=== PATIENT | female | born 2000 | race Caucasian/White ===

== ENCOUNTER 2023-04-08 22:56 | Inpatient (IN) | payer MEDICAID, OTHER ==
[~2023-04-08] VITALS: Ht 182.9 cm; Wt 131.5 kg
[2023-04-08 23:10] VITALS: BP 141/70; PULSE 100; RESP 17; TEMP 97.6; O2SAT 98
--- NOTE | 2023-04-08 23:10 | NUR ---
TO BED AMBULATORY
[2023-04-08] MEDS ORDERED: MORPHINE SULFATE 4 MG/ML SYR IVP ONE (23:25)
[2023-04-08] MEDS ORDERED: ONDANSETRON 4 MG/2 ML VIAL IVP ONE (23:25)
[2023-04-08 23:41] LABS: BASOPHILS # (AUTO) 0.1 K/uL (0.00-0.22); BASOPHILS % (AUTO) 0.9 % (0.0-2.0); EOSINOPHILS # (AUTO) 0.1 K/uL (0-0.4); EOSINOPHILS % (AUTO) 1.2 % (0.0-4.0); HEMATOCRIT 39.4 % (36-48); HEMOGLOBIN 13.4 g/dL (12.0-16.0); LYMPHOCYTES # (AUTO) 3.9 K/uL (2.5-16.5); LYMPHOCYTES % (AUTO) 42.7 % (20.5-51.1); MEAN CORPUSCULAR HEMOGLOBIN 29 pg (27-31); MEAN CORPUSCULAR HGB CONC 34 g/dL (33-37); MEAN CORPUSCULAR VOLUME 84.7 fL (80-94); MONOCYTES # (AUTO) 0.8 K/uL (0.8-1.0); MONOCYTES % (AUTO) 8.5 % (1.7-9.3); NEUTROPHILS # (AUTO) 4.3 K/uL (1.8-7.7); NEUTROPHILS % (AUTO) 46.7 % (42.2-75.2); PLATELET COUNT (AUTO) 277 K/uL (140-450); RED BLOOD CELL COUNT(AUTO) 4.65 MIL/uL (4.20-5.40); RED CELL DISTRIBUTION WIDTH 13.8 % (11.6-13.7); WHITE BLOOD COUNT (AUTO) 9.2 K/uL (4.8-10.8)
--- NOTE | 2023-04-08 23:44 | NUR ---
23 YO F BIB SELF WITH C/C OF 9/10 EPIGASTRIC PAIN RAD TO BACK X1HR. REPORTS NAUSEA, DENIES VOMITING. PT REPORTS SHE HAS HAD THIS PAIN IN PAST BUT RESOLVES ON ITS OWN. DENIES TAKING MEDICATION FOR PAIN. CALL LIGHT WITHIN REACH, PT DEMONSTRATED USE OF CALL LIGHT. ALL NEEDS MET AT THIS TIME. BED LOCKED IN LOWEST POSITION SIDE RAILS X2 FOR SAFETY. PT ON MANAGER EXPORT. DENIES HX, RX AND ALLERGIES
--- NOTE | 2023-04-08 23:46 | NUR ---
23 Y/O F BIB SELF FROM HOME WITH C/C OF EPIGASTRIC PAIN RADIATING TO RIGHT BACK X1HR WITH 9/10 PAIN. PT STATED THIS HAS HAPPENED BEFORE BUT THE PAIN HAS GONE AWAY ON OWN. PT DENIES TAKING ANY MEDICATIONS FOR PAIN AT HOME. PT HAS SOME NAUSEA DENIES VD, DENIES HEADACHE. PT STATED HER MENSTRUAL CYCLE IS IRREGULAR HASNT HAD ONE X1YR. PT HAS CALL LIGHT WITHIN REACH, SIDE RAILS X2 UP FOR SAFETY. PMH- PT DENIES NKA
[2023-04-09] LABS: ALBUMIN 3.4 g/dL (3.4-5.0); CARBON DIOXIDE 26.7 mmol/L (21-32); CREATININE 0.8 mg/dL (0.6-1.3); POTASSIUM 3.7 mmol/L (3.5-5.1); TOTAL BILIRUBIN 0.3 mg/dL (0.0-1.0)
--- NOTE | 2023-04-09 01:44 | NUR ---
URINE COLLECTED AND SENT TO LAB
[2023-04-09 02:04] LABS: APPEARANCE,URINE CLEAR (CLEAR); BILIRUBIN,URINE NEGATIVE (NEGATIVE); BLOOD, URINE TRACE-I (NEGATIVE); COLOR,URINE YELLOW (YELLOW); LEUKOCYTE ESTERASE ,URINE NEGATIVE (NEGATIVE); NITRITE, URINE NEGATIVE (NEGATIVE); UGLUCOSE NEGATIVE (NEGATIVE)
[2023-04-09 02:15] LABS: RBC,URINE 0-5 /HPF (0-5)
--- NOTE | 2023-04-09 02:30 | NUR ---
PT RESTING IN ROOM, BEDSIDE. PENDING ADMISSION
[2023-04-09] MEDS ORDERED: MORPHINE SULFATE 4 MG/ML SYR IVP ONE (02:35)
[2023-04-09 03:36] VITALS: O2SAT 98
[2023-04-09] MEDS ORDERED: NACL 0.9% 1,000 ML IV SCH (04:40)
[2023-04-09] MEDS ORDERED: HYDROcodone/APAP 5/325 MG 1 TAB TAB PO PRN (04:40)
[2023-04-09] MEDS ORDERED: POTASSIUM CHLORIDE 10 MEQ TABER PO PRN (04:40)
[2023-04-09] MEDS ORDERED: ACETAMINOPHEN 325 MG TAB PO PRN (04:40)
[2023-04-09] MEDS ORDERED: MAGNESIUM OXIDE 400 MG TAB PO PRN (04:40)
[2023-04-09] MEDS ORDERED: ONDANSETRON 4 MG/2 ML VIAL IVP PRN (04:40)
--- NOTE | 2023-04-09 04:55 | NUR ---
PT STATED SHE DID NOT NEED MORE FLUIDS. CHARGE NOTIFIED
[2023-04-09 06:09] VITALS: O2SAT 98
--- NOTE | 2023-04-09 07:21 | NUR ---
Report recieved from ANGIE Camarillo for transfer of care.
--- NOTE | 2023-04-09 07:21 | NUR ---
Pt report given to GEORGI ADAMS. Transfer of care at this time.
--- NOTE | 2023-04-09 07:52 | NUR ---
Patient ambulated to restroom with steady gait.
--- NOTE | 2023-04-09 08:07 | NUR ---
Patient is resting in bed, vital signs stable. All needs met by staff. Call light is within reach.
--- NOTE | 2023-04-09 08:25 | NUR ---
Patient reports pain is decreasing with pain medication, pain level is now at a 5/10.
--- NOTE | 2023-04-09 08:28 | NUR ---
Patient will be admitted to care of Dr. Lee. Admited to Med-Surg. Will go to room 124-B. Belongings list completed. Report to ROSALES Russell.
--- NOTE | 2023-04-09 08:45 | NUR ---
PT ARRIVED TO [facility] UNIT FROM ER VIA WHEELCHAIR. PT STABLE UPON ARRIVAL. AMBULATED TO BED. ORIENTED PT TO ROOM, BED MECHANICS AND CALL LIGHT. CALL LIGHT PLACED WITHIN REACH. NO FURTHER NEEDS ARE TO BE MET AT THIS TIME. WILL CONTINUE WITH PT CARE.
--- NOTE | 2023-04-09 08:56 | NUR ---
PATIENT HAS BEEN SCREENED AND CATEGORIZED LOW NUTRITION RISK. PATIENT WILL BE SEEN WITHIN 7 DAYS OF ADMISSION. 04/09/23-04/16/[address]
[2023-04-09 09:00] VITALS: PULSE 78; RESP 20; O2SAT 100
[2023-04-09] MEDS ORDERED: DOCUSATE SODIUM 100 MG GELCAP PO SCH (09:00)
--- NOTE | 2023-04-09 09:41 | NUR ---
The patient's care was reviewed and supervised by ED OCONNOR RN.
[2023-04-09] MEDS ORDERED: TRAM50TA3 PO (10:47)
[2023-04-09 12:46] VITALS: BP 112/70; PULSE 78; RESP 20; TEMP 97.7
--- NOTE | 2023-04-09 14:00 | NUR ---
DISCHARGE INSTRUCTIONS PROVIDED. PT VERBALIZE UNDERSTANDING, FORMS SIGNED. IV REMOVED, ID BAND REMOVED. PT WALKED OUT OF UNIT WITH BOYFRIEND, STABLE UPON LEAVING.
== END 2023-04-09 13:25 | disposition home or self-care (01) ==
LOC: MED 22:56 → MTU 04-09 04:41
PROVIDERS: ADMIT Internal Medicine; ATTEND Internal Medicine
DX: K80.70 Calculus of gallbladder and bile duct without cholecystitis without obstruction (principal); K76.0 Fatty (change of) liver, not elsewhere classified; R74.01 Elevation of levels of liver transaminase levels
CPT/HCPCS: 36415; 76705; 80053; 81001; 82150; 83690; 85025; J1644; J2270; J2405; Q0092

== ENCOUNTER 2023-10-03 12:50 | Emergency (ER) | payer OTHER ==
[~2023-10-03] VITALS: Ht 180.3 cm; Wt 129.7 kg
[~2023-10-03 12:50] MED LIST: TRAM50TA3 PO
[2023-10-03 12:58] VITALS: BP 152/100; PULSE 129; RESP 18; TEMP 98.6; O2SAT 100
[2023-10-03] MEDS ORDERED: KETOROLAC 30 MG/ML VIAL IM ONE (13:30)
[2023-10-03] MEDS ORDERED: FLONAS NS (13:52)
[2023-10-03] MEDS ORDERED: IBUP-2218 PO (13:52)
[2023-10-03] MEDS ORDERED: LORA1T1237 PO (13:52)
[2023-10-03 14:20] VITALS: BP 148/98; PULSE 107; RESP 18; TEMP 98.6; O2SAT 100
[2023-10-03 14:33] LABS: FLU A ANTIGEN negative (NEGATIVE); FLU B ANTIGEN negative (NEGATIVE)
== END 2023-10-03 14:33 | disposition home or self-care (01) ==
LOC: MED 12:50
DX: U07.1 COVID-19 (principal); Z79.899 Other long term (current) drug therapy
CPT/HCPCS: 81025; 87426; 87804; 96372; 99283; J1885

== ENCOUNTER 2023-12-25 22:41 | Inpatient (IN) | payer OTHER ==
[~2023-12-25] VITALS: Ht 180.3 cm; Wt 129.7 kg
[~2023-12-25 22:41] MED LIST changes: +FLONAS NS; +IBUP-2218 PO; +LORA1T1237 PO
[2023-12-25 22:45] VITALS: BP 127/87; PULSE 77; RESP 19; TEMP 98; O2SAT 98
[2023-12-26 00:01] LABS: APPEARANCE,URINE CLEAR (CLEAR); BILIRUBIN,URINE NEGATIVE (NEGATIVE); BLOOD, URINE TRACE-I (NEGATIVE); COLOR,URINE YELLOW (YELLOW); LEUKOCYTE ESTERASE ,URINE NEGATIVE (NEGATIVE); NITRITE, URINE NEGATIVE (NEGATIVE); PROTEIN,URINE NEGATIVE (NEGATIVE); UGLUCOSE NEGATIVE (NEGATIVE); UROBILINOGEN,URINE 0.2 EU/dL (0.2 - 1)
[2023-12-26 00:01] LABS: BASOPHILS # (AUTO) 0.1 K/uL (0.00-0.22); BASOPHILS % (AUTO) 0.7 % (0.0-2.0); EOSINOPHILS # (AUTO) 0.2 K/uL (0-0.4); EOSINOPHILS % (AUTO) 1.3 % (0.0-4.0); HEMATOCRIT 40.1 % (36-48); HEMOGLOBIN 13.6 g/dL (12.0-16.0); LYMPHOCYTES # (AUTO) 3.8 K/uL (2.5-16.5); LYMPHOCYTES % (AUTO) 32.2 % (20.5-51.1); MEAN CORPUSCULAR HEMOGLOBIN 28 pg (27-31); MEAN CORPUSCULAR HGB CONC 34 g/dL (33-37); MONOCYTES # (AUTO) 0.6 K/uL (0.8-1.0); MONOCYTES % (AUTO) 5.3 % (1.7-9.3); NEUTROPHILS # (AUTO) 7.1 K/uL (1.8-7.7); NEUTROPHILS % (AUTO) 60.5 % (42.2-75.2); PLATELET COUNT (AUTO) 261 K/uL (140-450); RED BLOOD CELL COUNT(AUTO) 4.83 MIL/uL (4.20-5.40); RED CELL DISTRIBUTION WIDTH 14.6 % (11.6-13.7); WHITE BLOOD COUNT (AUTO) 11.8 K/uL (4.8-10.8)
[2023-12-26] MEDS: NACL 0.9% 1,000 ML IV ONE (00:03)
[2023-12-26 00:07] LABS: BACTERIA,URINE >30 (MANY) /HPF (None Seen); MUCUS,URINE 1+ /LPF (None Seen); SQUAMOUS EPITHELIAL CELL,UR 0-3 (FEW) /LPF (0-3 (FEW)); WBC,URINE 0-5 /HPF (0-5)
[2023-12-26] MEDS: MORPHINE SULFATE 4 MG/ML SYR IVP ONE ×2 (00:07→02:20)
[2023-12-26] MEDS: ONDANSETRON 4 MG/2 ML VIAL IVP ONE (00:08)
[2023-12-26 00:16] LABS: ALBUMIN 3.5 g/dL (3.4-5.0); TOTAL BILIRUBIN 0.3 mg/dL (0.0-1.0); TOTAL PROTEIN, SERUM 7.4 g/dL (6.4-8.2)
[2023-12-26 00:32] LABS: ANION GAP 12.5 (8-16); CARBON DIOXIDE 29.3 mmol/L (21-32); CREATININE 0.9 mg/dL (0.6-1.3); POTASSIUM 3.8 mmol/L (3.5-5.1)
[2023-12-26] MEDS ORDERED: cefTRIAXone 1,000 MG VIAL ONE (01:21)
[2023-12-26] MEDS ORDERED: ACETAMINOPHEN 325 MG TAB PO PRN (04:00)
[2023-12-26] MEDS: NACL 0.9% 1,000 ML IV SCH (04:54)
[2023-12-26] MEDS ORDERED: AMPICILLIN/SULBACTAM 1.5 GM VIAL ONE (05:49)
[2023-12-26] MEDS: AMPICILLIN/SULBACTAM 1.5 GM in NACL 0.9% 50 ML IV SCH ×2 (05:58→13:48)
[2023-12-26 09:00] VITALS: PULSE 83; RESP 15; RESP 18; O2SAT 97
[2023-12-26 16:00] VITALS: BP 103/61; PULSE 73; RESP 17; TEMP 97.4; O2SAT 97
[2023-12-26 20:00] VITALS: BP 127/78; PULSE 81; RESP 18; TEMP 98.2; O2SAT 97
[2023-12-26] MEDS: MORPHINE SULFATE 2 MG/ML SYR IVP PRN (20:59)
[2023-12-27] VITALS: BP 115/75; PULSE 75; RESP 18; TEMP 97.2; O2SAT 99
[2023-12-27 06:09] LABS: BASOPHILS % (AUTO) 0.5 % (0.0-2.0); EOSINOPHILS # (AUTO) 0.1 K/uL (0-0.4); EOSINOPHILS % (AUTO) 1.4 % (0.0-4.0); HEMATOCRIT 36.8 % (36-48); HEMOGLOBIN 12.4 g/dL (12.0-16.0); LYMPHOCYTES # (AUTO) 3.1 K/uL (2.5-16.5); LYMPHOCYTES % (AUTO) 41.7 % (20.5-51.1); MEAN CORPUSCULAR HEMOGLOBIN 28 pg (27-31); MEAN CORPUSCULAR HGB CONC 34 g/dL (33-37); MEAN CORPUSCULAR VOLUME 84.1 fL (80-94); MONOCYTES # (AUTO) 0.5 K/uL (0.8-1.0); MONOCYTES % (AUTO) 6.9 % (1.7-9.3); NEUTROPHILS # (AUTO) 3.7 K/uL (1.8-7.7); NEUTROPHILS % (AUTO) 49.5 % (42.2-75.2); PLATELET COUNT (AUTO) 270 K/uL (140-450); RED BLOOD CELL COUNT(AUTO) 4.38 MIL/uL (4.20-5.40); RED CELL DISTRIBUTION WIDTH 14.1 % (11.6-13.7); WHITE BLOOD COUNT (AUTO) 7.4 K/uL (4.8-10.8)
[2023-12-27 06:42] LABS: ALBUMIN 3.1 g/dL (3.4-5.0); ANION GAP 11.6 (8-16); CALCIUM 8.4 mg/dL (8.5-10.1); CARBON DIOXIDE 26.4 mmol/L (21-32); CREATININE 0.7 mg/dL (0.6-1.3); TOTAL BILIRUBIN 0.4 mg/dL (0.0-1.0); TOTAL PROTEIN, SERUM 6.6 g/dL (6.4-8.2)
[2023-12-27 08:00] VITALS: BP 121/75; PULSE 66; RESP 18; TEMP 98.4; O2SAT 96
[2023-12-27] MEDS: HYDROcodone/APAP 5/325 MG 1 TAB TAB PO PRN (09:24)
[2023-12-27] MEDS: PANTOPRAZOLE 40 MG INJ VIAL IVP SCH (10:13)
[2023-12-27] MEDS ORDERED: COMMUNICATION ORDER MC PRN (11:45)
[2023-12-27] MEDS: ACETAMINOPHEN EXTRA STRENGTH 500 MG TAB PO PRN (11:53)
[2023-12-27] MEDS: ALUMINUM HYD/MAG/SIMETHICONE 30 ML UDC PO SCH (12:12)
[2023-12-27] MEDS: DICYCLOMINE HCL LIQUID 10 MG/5 ML UDC PO SCH (12:12)
[2023-12-27 16:42] VITALS: BP 123/72; PULSE 72; RESP 18; TEMP 98.3; O2SAT 95
[2023-12-27 20:00] VITALS: BP 131/76; PULSE 78; RESP 18; TEMP 98; O2SAT 98
[2023-12-27] MEDS: ONDANSETRON 4 MG/2 ML VIAL IVP PRN (20:17)
[2023-12-28 04:00] VITALS: BP 119/78; PULSE 68; RESP 18; TEMP 98.8; O2SAT 99
[2023-12-28 06:07] LABS: BASOPHILS % (AUTO) 0.5 % (0.0-2.0); EOSINOPHILS # (AUTO) 0.1 K/uL (0-0.4); EOSINOPHILS % (AUTO) 1.2 % (0.0-4.0); HEMATOCRIT 37.6 % (36-48); HEMOGLOBIN 12.5 g/dL (12.0-16.0); LYMPHOCYTES # (AUTO) 2.3 K/uL (2.5-16.5); LYMPHOCYTES % (AUTO) 34.8 % (20.5-51.1); MEAN CORPUSCULAR HEMOGLOBIN 28 pg (27-31); MEAN CORPUSCULAR HGB CONC 33 g/dL (33-37); MEAN CORPUSCULAR VOLUME 84.1 fL (80-94); MONOCYTES # (AUTO) 0.5 K/uL (0.8-1.0); MONOCYTES % (AUTO) 8.2 % (1.7-9.3); NEUTROPHILS # (AUTO) 3.7 K/uL (1.8-7.7); NEUTROPHILS % (AUTO) 55.3 % (42.2-75.2); PLATELET COUNT (AUTO) 262 K/uL (140-450); RED BLOOD CELL COUNT(AUTO) 4.47 MIL/uL (4.20-5.40); RED CELL DISTRIBUTION WIDTH 14.2 % (11.6-13.7); WHITE BLOOD COUNT (AUTO) 6.6 K/uL (4.8-10.8)
[2023-12-28 06:34] LABS: ALBUMIN 2.9 g/dL (3.4-5.0); ANION GAP 12.5 (8-16); CALCIUM 7.9 mg/dL (8.5-10.1); CREATININE 0.6 mg/dL (0.6-1.3); POTASSIUM 3.5 mmol/L (3.5-5.1); TOTAL BILIRUBIN 1.4 mg/dL (0.0-1.0); TOTAL PROTEIN, SERUM 6.2 g/dL (6.4-8.2)
[2023-12-28 08:00] VITALS: PULSE 75; RESP 18; O2SAT 97
[2023-12-28 16:00] VITALS: BP 125/79; PULSE 72; RESP 18; TEMP 98.2; O2SAT 97
[2023-12-28 20:00] VITALS: BP 109/68; PULSE 82; RESP 18; TEMP 98.5; O2SAT 97; O2SAT 98
[2023-12-29 04:00] VITALS: BP 112/68; PULSE 76; RESP 19; TEMP 97.7; O2SAT 98
[2023-12-29 05:54] LABS: BASOPHILS # (AUTO) 0.1 K/uL (0.00-0.22); BASOPHILS % (AUTO) 0.5 % (0.0-2.0); EOSINOPHILS # (AUTO) 0.3 K/uL (0-0.4); EOSINOPHILS % (AUTO) 2.5 % (0.0-4.0); HEMATOCRIT 38.1 % (36-48); HEMOGLOBIN 13.1 g/dL (12.0-16.0); LYMPHOCYTES # (AUTO) 3.6 K/uL (2.5-16.5); MEAN CORPUSCULAR HEMOGLOBIN 28 pg (27-31); MEAN CORPUSCULAR HGB CONC 34 g/dL (33-37); MONOCYTES # (AUTO) 0.5 K/uL (0.8-1.0); MONOCYTES % (AUTO) 5.4 % (1.7-9.3); NEUTROPHILS # (AUTO) 5.4 K/uL (1.8-7.7); NEUTROPHILS % (AUTO) 54.6 % (42.2-75.2); PLATELET COUNT (AUTO) 303 K/uL (140-450); RED BLOOD CELL COUNT(AUTO) 4.59 MIL/uL (4.20-5.40); RED CELL DISTRIBUTION WIDTH 14.2 % (11.6-13.7); WHITE BLOOD COUNT (AUTO) 9.8 K/uL (4.8-10.8)
[2023-12-29 05:56] LABS: ALBUMIN 3.1 g/dL (3.4-5.0); ANION GAP 13.1 (8-16); CALCIUM 8.6 mg/dL (8.5-10.1); CARBON DIOXIDE 24.7 mmol/L (21-32); CREATININE 0.7 mg/dL (0.6-1.3); POTASSIUM 3.8 mmol/L (3.5-5.1); TOTAL BILIRUBIN 0.4 mg/dL (0.0-1.0); TOTAL PROTEIN, SERUM 6.8 g/dL (6.4-8.2)
[2023-12-29] MEDS ORDERED: ACET-10509 PO (10:35)
[2023-12-29 12:41] VITALS: BP 116/69; PULSE 78; PULSE 82; RESP 18; TEMP 98.6; O2SAT 96
[2023-12-29 12:58] VITALS: BP 116/69; PULSE 82; RESP 18; TEMP 98.6
== END 2023-12-29 14:00 | disposition home or self-care (01) | DRG 444 ==
LOC: MED 22:41 → MMU 12-26 04:03 → MTU 12-26 06:16 → MMU 12-26 19:56
PROVIDERS: ADMIT Student in an Organized Health Care Education/Training Program; ATTEND Student in an Organized Health Care Education/Training Program
DX: K81.0 Acute cholecystitis (principal); K85.90 Acute pancreatitis without necrosis or infection, unspecified; Z68.39 Body mass index [BMI] 39.0-39.9, adult; E66.01 Morbid (severe) obesity due to excess calories
CPT/HCPCS: 36415; 74150; 76705; 78445; 80048; 80053; 80076; 81001; 81025; 82150; 83690; 85025; 87040; 87081; 87086; 96365; 96367; 96375; 99285; C9113; J0295; J0696; J2270; J2405; Q0092

== ENCOUNTER 2024-03-26 09:40 | Outpatient (CLI) | payer OTHER ==
[~2024-03-26 09:40] MED LIST changes: +ACET-10509 PO
[2024-03-26 10:28] LABS: BASOPHILS # (AUTO) 0.1 K/uL (0.00-0.22); BASOPHILS % (AUTO) 0.7 % (0.0-2.0); EOSINOPHILS # (AUTO) 0.1 K/uL (0-0.4); EOSINOPHILS % (AUTO) 1.5 % (0.0-4.0); HEMATOCRIT 41.1 % (36-48); HEMOGLOBIN 14.1 g/dL (12.0-16.0); LYMPHOCYTES # (AUTO) 2.9 K/uL (2.5-16.5); LYMPHOCYTES % (AUTO) 35.4 % (20.5-51.1); MEAN CORPUSCULAR HEMOGLOBIN 29 pg (27-31); MEAN CORPUSCULAR HGB CONC 34 g/dL (33-37); MEAN CORPUSCULAR VOLUME 84.1 fL (80-94); MONOCYTES # (AUTO) 0.5 K/uL (0.8-1.0); NEUTROPHILS # (AUTO) 4.5 K/uL (1.8-7.7); NEUTROPHILS % (AUTO) 56.4 % (42.2-75.2); PLATELET COUNT (AUTO) 316 K/uL (140-450); RED BLOOD CELL COUNT(AUTO) 4.89 MIL/uL (4.20-5.40); RED CELL DISTRIBUTION WIDTH 14.2 % (11.6-13.7); WHITE BLOOD COUNT (AUTO) 8.1 K/uL (4.8-10.8)
[2024-03-26 10:57] LABS: ALBUMIN 3.7 g/dL (3.4-5.0); CALCIUM 8.9 mg/dL (8.5-10.1); CARBON DIOXIDE 28.3 mmol/L (21-32); CHOL/HDL RATIO 3.8 (1-4.5); CREATININE 0.8 mg/dL (0.6-1.3); POTASSIUM 4.3 mmol/L (3.5-5.1); THYROID STIMULATING HORMONE 1.31 uIU/mL (0.34-3.74); TOTAL BILIRUBIN 0.3 mg/dL (0.0-1.0); TOTAL PROTEIN, SERUM 8.1 g/dL (6.4-8.2)
[2024-03-27 09:07] LABS: HIV 1/0/2 ABS, QUAL Non Reactive (Non Reactive); T4 FREE (DIRECT) 1.19 ng/dL (0.82-1.77)
[2024-03-27 09:55] LABS: HEMOGLOBIN A1C 5.7 % (4.8-5.6)
[2024-03-27 09:56] LABS: VITAMIN D, 25-HYDROXY 29.2 ng/mL (30.0-100.0)
[2024-03-27 12:08] LABS: HEPATITIS A ANTIBODY IGM Negative (Negative); HEPATITIS B CORE IGM (LABCORP) Negative (Negative); HEPATITIS C AB Non Reactive (Non Reactive)
== END 2024-03-26 16:36 | disposition home or self-care (01) ==
LOC: MLB 09:40
DX: E66.9 Obesity, unspecified (principal); E28.2 Polycystic ovarian syndrome; Z09 Encounter for follow-up examination after completed treatment for conditions other than malignant neoplasm; Z13.1 Encounter for screening for diabetes mellitus; Z13.9 Encounter for screening, unspecified; Z13.29 Encounter for screening for other suspected endocrine disorder; Z13.220 Encounter for screening for lipoid disorders; E55.9 Vitamin D deficiency, unspecified; Z11.3 Encounter for screening for infections with a predominantly sexual mode of transmission
CPT/HCPCS: 36415; 80053; 82306; 83036; 84439; 84443; 85025; 86702; 86704; 86709; 86804; 87491; 87522